=== PATIENT | female | born 1955 | race Caucasian/White ===

== ENCOUNTER 2016-09-27 04:17 | Day surgery (SDC) | payer MEDICARE, SELFPAY ==
[2016-09-25 19:56] LABS: HEMATOCRIT 47.9 % (36.0-48.0); HEMOGLOBIN 15.8 g/dL (12.0-16.0)
[2016-09-25 20:08] LABS: BUN (BLOOD UREA NITROGEN) 3 MG/DL (6-23); CALCIUM, SERUM 9.2 MG/DL (8.5-10.4); CHLORIDE, SERUM 108 MMOL/L (96-112); CO2 (CARBON DIOXIDE) 25 MMOL/L (24-34); CREATININE 1.14 MG/DL (0.55-1.02); GFR AFRICAN AMERICAN 60 ML/MIN (>=60); GFR NON AFRICAN AMERICAN 51 ML/MIN (>=60); GLUCOSE, SERUM 117 MG/DL (60-99); POTASSIUM, SERUM 3.8 MMOL/L (3.5-5.3); SODIUM, SERUM 145 MMOL/L (135-148)
--- NOTE | ~2016-09-27 | OP ---
Record Of Operation [facility] [address] [place]. [address] NAME: JENNIFER CASAS : 53 STATUS : [facility] [place] PAT#: [id number] AGE: 61 ADM/REG DATE : 09/27/16 MR#: [id number] REPORT SERV DATE: 09/27/16 DICTATED BY: JACOB WING DATE: 09/27/16 REPORT STATUS : Draft TRANSCRIBED BY: MODL DATE: 09/27/16 DATE OF PROCEDURE: 09/27/2016 PREOPERATIVE DIAGNOSIS: Recurrent herniated nucleus polyposis, left L4-5. POSTOPERATIVE DIAGNOSIS: Recurrent herniated nucleus polyposis, left L4-5. PROCEDURE: Microscopic and navigation assisted left L4-5 hemilaminotomy, foraminotomy, and microdiskectomy. SURGEON: Jacob Wing D.O. MEAT GRINDER: Angel Guillory. ANESTHESIA: General. ESTIMATED BLOOD LOSS: 15 mL. INDICATIONS FOR SURGERY: A 61-year-old female with left severe intractable left buttock and leg pain that has not responded to medications. She has tried some exercises which actually made it worse. Plain x-rays reveal previous large laminectomy defect at L4-5 and L5-S1. MRI shows a large recurrent HNP on the left with a nerve impingement. Having failed conservative care with the above findings, she is brought to surgery for a left L4-5 microdiskectomy. Prior to surgery, risks, benefits, alternatives, and expectations have been explained. In particular we have explained that she may well develop instability with more removal of the facet joint and also can require arthrodesis. DESCRIPTION OF PROCEDURE: After identifying the patient in the preop holding area, antibiotic prophylaxis was given. Neurophysiology monitoring leads were inserted. The patient was brought to the operative suite and general anesthetic including endotracheal intubation was administered. She was placed prone on a Jairo spine frame. Bony prominences were carefully padded. Thoracolumbar spine scrubbed with Hibiclens solution. DuraPrep was painted. Sterile drapes were applied. Because of the complexity of surgery and the need to identify correct level of surgery intraoperatively as well as desire to carry out the safest most precise dissection, I felt intraoperative navigation was mandatory. A small stab wound was carried out over the right posterior superior iliac spine. A percutaneous pin with navigational frame attached was inserted in PSIS. Intraoperative CT scan with O-arm obtained. CT information used to register the navigational system. With navigational assistance, I identified the amount of lamina of L4 and the amount of medial facet joint I needed to remove in order to reach the cephalad boundary of the disk space in the medial and the lateral portion of the thecal sac. I removed an additional 20% of the lamina of L4, approximately 10% additional removal of the facet joint. I also Record Of Operation [address] [place]. [address] NAME: JENNIFER CASAS : 53 STATUS : [facility] [place] PAT#: [id number] AGE: 61 ADM/REG DATE : 09/27/16 MR#: [id number] REPORT SERV DATE: 09/27/16 DICTATED BY: JACOB WING DATE: 09/27/16 REPORT STATUS : Draft TRANSCRIBED BY: ANDERS DATE: 09/27/16 assisted with removal of the facet with a 2 mm Kerrison rongeur. The epidural fibrosis was released with a small curette and mobilized. After mobilization, I was able to isolate a large extruded disk herniation in the axilla between the thecal sac and the L5 nerve root exiting. A free fragment was removed, there were two other large fragments were removed totally thus decompressing the thecal sac and nerve root. The wound was irrigated. The retractor was removed. The myofascial layer was allowed to reapproximate itself. The subcutaneous tissue was closed with 2-0 Vicryl sutures, 2-0 vertical mattress nylon suture was used for skin closure. Sterile dressings were applied. The patient returned to supine position, awakened, extubated, taken to recovery room in satisfactory condition having tolerated the procedure well. ELIZABETH/ANDERS Jacob Wing D.O. / [id number] CC: Alexsander Storey PAUL DANIEL
[~2016-09-27 04:17] MED LIST: CELEXA10 PO; MCZ25 PO; MEVACOR40 MG PO; NEUR100 PO; OXYIR5 MG PO; PRIN5 PO; ULTRAM50 PO; V5 PO
== END 2016-09-27 16:54 | disposition home or self-care (01) ==
LOC: SDC 04:17
PROVIDERS: Orthopaedic Surgery Orthopaedic Surgery of the Spine
PROC: 0SB20ZZ Excision of Lumbar Vertebral Disc, Open Approach (ICD-10-PCS; principal; 2016-09-27 05:45)
PROC: 01NB0ZZ Release Lumbar Nerve, Open Approach (ICD-10-PCS; 2016-09-27 05:45)
DX: M51.26 Other intervertebral disc displacement, lumbar region (principal); H81.09 Meniere's disease, unspecified ear; F17.210 Nicotine dependence, cigarettes, uncomplicated; I10 Essential (primary) hypertension; E78.00 Pure hypercholesterolemia, unspecified; M19.90 Unspecified osteoarthritis, unspecified site; F41.9 Anxiety disorder, unspecified; Z88.8 Allergy status to other drugs, medicaments and biological substances; G62.9 Polyneuropathy, unspecified; E78.5 Hyperlipidemia, unspecified; Z91.048 Other nonmedicinal substance allergy status; H91.90 Unspecified hearing loss, unspecified ear; Z87.01 Personal history of pneumonia (recurrent); Z86.010 Personal history of colon polyps; Z98.51 Tubal ligation status; Z98.890 Other specified postprocedural states
CPT/HCPCS: 36415; 80048; 85014; 85018; 88304; 88311; 93005; A9270-GY; J0330; J0690; J2250; J2274; J2405; J2710; J3010